=== PATIENT | female | born 1980 | race Caucasian/White ===

== ENCOUNTER 2022-10-03 01:33 | Outpatient (CLI) | payer BC, SELFPAY ==
[2022-10-03 11:36] LABS: ALT 20 U/L (14-59); AST 17 U/L (15-37); Alkaline Phosphatase 65 U/L (46-116); Anion Gap 7.5 mmol/L (3-11); BUN 19 mg/dL (7-18); Bilirubin, Total 0.3 mg/dL (0.2-1.0); CO2 27.5 mmol/L (21.0-32.0); CREATININE 0.8 mg/dL (0.55-1.02); Calcium 9.3 mg/dL (8.5-10.1); Calculated LDL 101 mg/dL (<100); Chloride 104 mmol/L (98-107); Cholesterol 173 mg/dL (<200); Estimated GFR 95.46 (mL/min/1.73m2); Folate 15.6 ng/mL (8.6-20.0); Glucose 92 mg/dL (74-106); HDL Cholesterol 51 mg/dL (40-60); Sodium 139 mmol/L (136-145); Triglyceride 107 mg/dL (<150); Vitamin B12 287 pg/mL (193-986)
[2022-10-04 09:13] LABS: HIV-1/2 Ag & Ab Screen Negative (Negative)
[2022-10-06 10:35] LABS: Hepatitis C Ab w Rflx HCV PCR Negative (Negative)
== END 2022-10-03 01:34 | disposition home or self-care (01) ==
LOC: LBO 01:33
PROVIDERS: PCP Nurse Practitioner Adult Health; Visit Provider Nurse Practitioner Adult Health
DX: E66.9 Obesity, unspecified (principal); R76.8 Other specified abnormal immunological findings in serum; Z11.4 Encounter for screening for human immunodeficiency virus [HIV]; Z11.59 Encounter for screening for other viral diseases; Z13.1 Encounter for screening for diabetes mellitus; Z13.220 Encounter for screening for lipoid disorders
CPT/HCPCS: 36415; 80053; 80061; 86803; 87389; 82607; 82746

== ENCOUNTER 2022-12-18 11:01 | Outpatient (REF) | payer BC, SELFPAY ==
--- NOTE | 2022-12-18 10:45 | PAPFT_PTH ---
PATIENT: Kristin Corral LOC: [facility] #:[id number] AGE/SX: 42/F ROOM: RE12/18/[address]: Shania Interiano APRN : 1980 BED: DIS: 12/18/2022 SPEC #: [id number] RECD: 12/18/22 18:34 STATUS: CADY REQ #: [id number] MOUSTAPHA: 12/18/22 10:[address]: Shania Interiano DEPT: [facility] Cytology RECD BY: Radha Rasmussen Tissues: 1 - CX/ENDOCX FOR PAP SMEARS Procedures: PAP THIN PREP/UVM Screening HPV DNA PROBE Comments: [id number]
== END 2022-12-18 11:02 | disposition home or self-care (01) ==
LOC: LBN 11:01
PROVIDERS: PCP Nurse Practitioner Adult Health; Referring Provider Nurse Practitioner Adult Health; Visit Provider Nurse Practitioner Adult Health
DX: Z12.4 Encounter for screening for malignant neoplasm of cervix (principal); Z11.51 Encounter for screening for human papillomavirus (HPV)
CPT/HCPCS: 88142; 87624

== ENCOUNTER 2024-01-04 05:38 | Outpatient (CLI) | payer BC, SELFPAY ==
[2024-01-04 09:32] LABS: BUN 20 mg/dL (7-18); CREATININE 0.8 mg/dL (0.55-1.02); Calcium 9.3 mg/dL (8.5-10.1); Chloride 104 mmol/L (98-107); Estimated GFR 94.87 (mL/min/1.73m2); Glucose 96 mg/dL (74-106); Potassium 4.2 mmol/L (3.5-5.1); Sodium 142 mmol/L (136-145); TSH (W/Ref FT4) 1.29 uIU/mL (0.36-3.74)
[2024-01-08 09:43] LABS: Testosterone, Total 13 ng/dL (8-60)
== END 2024-01-04 05:39 | disposition home or self-care (01) ==
LOC: LBO 05:38
PROVIDERS: PCP Nurse Practitioner Adult Health; Referring Provider Nurse Practitioner Adult Health; Visit Provider Nurse Practitioner Adult Health
DX: R79.9 Abnormal finding of blood chemistry, unspecified (principal); N92.6 Irregular menstruation, unspecified; R45.4 Irritability and anger; L68.0 Hirsutism
CPT/HCPCS: 36415; 80048; 84403; 84443

== ENCOUNTER 2024-09-06 02:10 | Outpatient (CLI) | payer BC, SELFPAY ==
[2024-09-06 08:27] LABS: Anion Gap 7.9 mmol/L (3-11); BUN 18 mg/dL (7-18); CO2 28.1 mmol/L (21.0-32.0); Calcium 9.1 mg/dL (8.5-10.1); Chloride 108 mmol/L (98-107); Estimated GFR 72.13 (mL/min/1.73m2); Glucose 98 mg/dL (74-106); Potassium 4.2 mmol/L (3.5-5.1); Sodium 144 mmol/L (136-145)
== END 2024-09-06 02:11 | disposition home or self-care (01) ==
LOC: LBO 02:10
PROVIDERS: PCP Nurse Practitioner Adult Health; Referring Provider Nurse Practitioner Adult Health; Visit Provider Nurse Practitioner Adult Health
DX: E66.01 Morbid (severe) obesity due to excess calories (principal); Z68.41 Body mass index [BMI] 40.0-44.9, adult
CPT/HCPCS: 36415; 80048

== ENCOUNTER 2024-09-28 17:14 | Outpatient (REF) | payer BC, SELFPAY ==
[2024-09-28 17:45] LABS: COVID-19 PCR Negative (Negative); Influenza A PCR Negative (Negative); Influenza B PCR Positive (Negative); RSV PCR Negative (Negative); Source NASOPHARYNX
== END 2024-09-28 17:15 | disposition home or self-care (01) ==
LOC: NCHCN 17:14
PROVIDERS: PCP Nurse Practitioner Adult Health; Visit Provider Nurse Practitioner Adult Health
DX: J98.8 Other specified respiratory disorders (principal); B97.89 Other viral agents as the cause of diseases classified elsewhere
CPT/HCPCS: 87637

== ENCOUNTER 2025-03-03 11:09 | Outpatient (REF) | payer BC, SELFPAY ==
--- NOTE | 2025-03-03 09:40 | ENDOMET_PTH ---
PATIENT: Kristin Corral LOC: [facility] U#:[id number] AGE/SX: 44/F ROOM: RE03/03/[address]: Hallie Patricio DO : 1980 BED: DIS: 03/03/2025 SPEC #: [id number] RECD: 03/03/25 12:47 STATUS: CADY REQ #: [id number] MOUSTAPHA: 03/03/25 09:[address]: Hallie Patricio DEPT: Surgical Specimen RECD BY: Radha Rasmussen ENTERED: 03/03/25 12:47 SP TYPE: Endomet OTHR DR: Shania Interiano APRN Tissues: 1 - ENDOMETRIUM BX/ASUNCIONETTE Procedures: GROSS AND MICRO LEVEL 4 Comments: [id number]
== END 2025-03-03 11:10 | disposition home or self-care (01) ==
LOC: LBN 11:09
PROVIDERS: PCP Nurse Practitioner Adult Health; Visit Provider Obstetrics & Gynecology
DX: R87.619 Unspecified abnormal cytological findings in specimens from cervix uteri (principal)
CPT/HCPCS: 88305

== ENCOUNTER 2025-04-03 03:55 | Outpatient (CLI) | payer BC, SELFPAY ==
[2025-04-03 09:46] LABS: Abs Immature Grans 0.01 10^3/uL (0.0-0.06); HCT 38.4 % (36.0-46.0); HGB 12.7 g/dL (11.2-15.7); Immature Grans % 0.2 %; MCH 29.8 pg (27.0-33.0); MCHC 33.1 % (32.0-36.0); MCV 90 fL (80-95); MPV 9.4 fL (8.0-11.0); Platelet Count 299 10^3/uL (130-400); RBC 4.26 10^6/uL (3.93-5.22); RDW 12.7 % (11.7-14.6); RDW-SD 41.7 fL; WBC 5.61 10^3/uL (4.4-10.8)
== END 2025-04-03 03:56 | disposition home or self-care (01) ==
LOC: LBO 03:55
PROVIDERS: PCP Nurse Practitioner Adult Health; Visit Provider Obstetrics & Gynecology
DX: Z01.818 Encounter for other preprocedural examination (principal)
CPT/HCPCS: 36415; 86850; 86900; 86901; 85025

== ENCOUNTER 2025-04-12 06:14 | Day surgery (SDC) | payer BC, SELFPAY ==
[2025-04-12] VITALS (16 sets, daily range): BP systolic 93–124; BP diastolic 74–81; PULSE 64–87; RESP 13–20; TEMP 36.2–37; O2SAT 98–100; BMI 25.5
[2025-04-12] MEDS: Lactated Ringers 1,000 ML 125 ML IV (06:41)
--- NOTE | 2025-04-12 07:05 | W.ANESPRE ---
General Info Date of Service Date Performed: 04/12/25 Height: 5 ft 2 in Weight: 63.3 kg Body Mass Index (BMI): 25.5 Surgical Procedure: Operation Date: 04/12/25 07:40 Proposed Procedure Side Surgeon p Dilation & Curettage with Hysteroscopy Hallie Patricio DO Meds Allergies and Home Medications Allergies Allergy/AdvReac Type Severity Reaction Status Date / Time shellfish derived Allergy Severe throat Verified 04/12/25 06:31 swelling and itching iodine Allergy Unknown Anaphylaxis Verified 04/12/25 06:31 Home Medication ?Medication ?Instructions ?Recorded tirzepatide 10 mg/0.5 mL 10 mg (0.5 mL) subcut QWEEK #2 mL 10/26/24 subcutaneous pen injector Current Visit Medications: Current Medications Generic Name Dose Route Start Last Admin Trade Name Freq PRN Reason Stop Dose Admin Ringer's Solution 1,000 mls @ 125 mls/hr 04/12/25 06:00 04/12/25 06:41 IV 04/12/25 23:59 125 mls/hr INFUSION MOHINDER Administration IV Miscellaneous Supplies 1 each 04/12/25 06:00 Iv Access IV 04/12/25 23:59 DIRECTED MOHINDER Sodium Chloride 0 ml 04/12/25 06:00 Normal Saline Flush 10 Ml Syr IV 04/12/25 23:59 PRN PRN Sodium Chloride 0 ml 04/12/25 06:00 Normal Saline 10 Ml Vial IJ 04/12/25 23:59 DIRECTED PRN Sterile Water 0 ml 04/12/25 06:00 Water,Injection,Sterile 10 Ml Vial IJ 04/12/25 23:59 DIRECTED PRN PFSH Active Problems Active Problems: Problem Status Onset Code Dysfunctional uterine bleeding Acute N93.8 Influenza B Acute ~09/2024 J10.1 Menstrual changes Acute ~05/2023 N92.6 Obesity Chronic E66.9 Family history of breast cancer Chronic Z80.3 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 Medical History Medical History Viral respiratory illness (~09/2024) Elevated BUN Surgical History Surgical History History of wisdom tooth extraction No pertinent past surgical history Tobacco Smoking/Tobacco Use Status: Never Passive smoking exposure: No Alcohol Alcohol Intake: current Alcohol intake frequency: a few times a month Substance Use Substance use: Never Substance use type: does not use Counseling provided: none Prental History History Para 2 Hx # Term Pregnancies Multiple births Hx # Pregnancies Ectopic pregnancies AB induced Hx Number of Living Children AB spontaneous Vital Signs and Lab Results Vital Signs Most Recent Vital Signs in EMR: Most Recent Vital Signs Temp Pulse Resp BP Pulse Ox 36.7 C 83 17 115/77 100 04/12/25 06:22 04/12/25 06:22 04/12/25 06:22 04/12/25 06:22 04/12/25 06:22 Point of Care Results Point of Care Results: POC- Test(urine) Negative 04/12/25 06:30 Lab Results Blood Type / Crossmatch: Antibody Screen NEGATIVE 04/03/25 Complete Blood Count: WBC, (4.4-10.8) 5.61 10^3/uL 04/03/25, 09:37 RBC, (3.93-5.22) 4.26 10^6/uL 04/03/25, 09:37 Hgb, (11.2-15.7) 12.7 g/dL 04/03/25, 09:37 Hct, (36.0-46.0) 38.4 % 04/03/25, 09:37 Plt Count, (130-400) 299 10^3/uL 04/03/25, 09:37 Anesthesia Assessment and Plan Anesthesia History Personal History: No History of Anesthesia Complications Family History: No Family History of Anesthesia Complications Exercise Tolerance Exercise Tolerance: Metabolic Equivalents>4 Pertinent Negatives Pertinent Negatives: No Symptoms of GERD, No Major Cardiovascular Symptoms or Complaints and No Major Pulmonary Symptoms or Complaints Cardiac & Pulmonary Exam Cardiac Exam: Normal S1/S2 Heart Sounds Pulmonary Exam: Clear Bilateral Breath Sounds Implantable Cardiac Device Does patient have a Pacemaker or an ICD?: No Airway Exam Known Difficult Airway: No Mallampati Class: 2 Mouth Opening: Normal (> 3cm) Thyromental Distance: Greater than 3 cm Neck Range of Motion: Full ROM Neck Circumference: Normal Teeth Condition: Normal Dentition ASA Classification ASA Score: ASA 2 Emergency Case?: No NPO Status NPO Status: NPO Clears >2 hours, Solids >8 hours Status Status: Negative HCG Anesthesia Plan Resuscitation Status: Full Code Anesthesia Technique: General Anesthesia Airway Planned: Natural Airway Monitors Used: Standard Monitors
--- NOTE | 2025-04-12 07:53 | ENDO_PTH ---
PATIENT: Kristin Corral LOC: [facility] U#:[id number] AGE/SX: 44/F ROOM: RE04/12/[address]: Hallie Patricio DO : 1980 BED: DIS: 04/12/2025 SPEC #: [id number] RECD: 04/12/25 13:15 STATUS: CADY [facility] #: [id number] MOUSTAPHA: 04/12/25 07:[address]: Hallie Patricio DEPT: Surgical Specimen RECD BY: Radha Rasmussen ENTERED: 04/12/25 13:16 SP TYPE: Endo OTHR DR: Shania Interiano APRN Tissues: 1 - ENDOCERVICAL BX/CURRETTE 2 - ENDOMETRIUM BX/CURRETTE Procedures: GROSS AND MICRO LEVEL 4 Comments: [id number]
--- NOTE | 2025-04-12 08:10 | W.PM.OP ---
Operative Note Operative Note PRE-OP DIAGNOSIS: Dysfunctional uterine bleeding POST-OP DIAGNOSIS: same PROCEDURE: Hysteroscopy, fractional dilation and curettage SURGEON: Hallie Patricio ANESTHESIA TYPE: General:No Airway Refer to Anesthesia Record ESTIMATED BLOOD LOSS: 5 PATHOLOGY: other (1. Endocervical curettage 2. Endometrial curettage) COMPLICATIONS: None Patient was transported to: PACU Patient's condition: stable Indications: Dysfunctional uterine bleeding. Findings: plush but regular endometrium. No intrauterine pathology noted. No polyps or fibroids appreciated. Tubal ostia visualized bilaterally. Procedure Description: After full informed consent was obtained, patient taken the operating suite with an IV running. She is placed in dorsal supine position and anesthesia administered. She was then placed in the modified dorsolithotomy position in yellowfin stirrups and prepped and draped in the usual sterile fashion. She had emptied her bladder prior to coming to the surgical suite. She had DVT prophylaxis with pneumatic compression stockings. No antibiotic prophylaxis was warranted. A timeout was held. Exam under anesthesia revealed a uterus that is midline and mobile. There is no evidence of adnexal mass appreciated. Speculum inserted into the vaginal vault and the cervical os identified. A single-tooth tenaculum was used to grasp and stabilize the anterior lip of the cervix. Cervical os dilated sequentially to the point that a 4 mm hysteroscope could be passed without difficulty. With direct visualization and instillation of normal saline, hysteroscopy was performed. Endocervical cavity appeared smooth and regular. Endometrial cavity also smooth and regular, with plush endometrium. There is no evidence of polyp or fibroid. Both tubal ostia were visualized. At this point the hysteroscope portion of the procedure was terminated and the hysteroscope removed. Fluid deficit was 55 cc of normal saline. At this point fractional curettage was performed commencing with the endocervical curetting, followed by endometrial curetting. Single-tooth tenaculum was then removed and puncture sites were hemostatic. Speculum was removed from the vaginal vault and the patient was returned to the dorsal supine position. She awoke from anesthesia without difficulty. She was taken the postanesthesia care unit in stable condition. EBL: 5 mL Fluids: Crystalloid per anesthesia +55 cc normal saline deficit from hysteroscope Pathology: 1. Endocervical curettage 2. Endometrial curettage Complications: None apparent Findings: Smooth, though plush regular endometrium without evidence of polyp or fibroid. Date of Procedure: 04/12/25
--- NOTE | 2025-04-12 10:28 | W.ANESPOSTOP ---
Postoperative Evaluation Date, Time and Location Date Performed: 04/12/25 Time Performed: 09:08 Patient Location: Day Surgery Unit Vital Signs Most Recent Imported Vital Signs: Most Recent Vital Signs Temp Pulse Resp BP Pulse Ox 36.2 C L 65 17 121/81 100 04/12/25 09:05 04/12/25 09:05 04/12/25 09:05 04/12/25 09:05 04/12/25 09:05 Pain Score Most Recent Pain Score: Most Recent Pain Score Pain Level 0 04/12/25 09:05 Assessment Mental Status: Awake (Alert & Oriented to Patient Baseline) Airway and Respiratory Function: Patent airway with normal (patient baseline) respiratory exam Cardiovascular Function: Hemodynamically Stable Hydration Status: Adequately Hydrated Nausea & Vomiting: No Nausea or Vomiting Pain: Pt. Denies Any Pain Peripheral Nerve Block: Patient did not receive a nerve block
== END 2025-04-12 09:10 | disposition home or self-care (01) ==
PROVIDERS: PCP Nurse Practitioner Adult Health; Visit Provider Obstetrics & Gynecology
PROC: 0UDB8ZZ Extraction of Endometrium, Via Natural or Artificial Opening Endoscopic (ICD-10-PCS; CPT 58558; principal; 2025-04-12 07:30)
DX: N93.9 Abnormal uterine and vaginal bleeding, unspecified (principal); N92.6 Irregular menstruation, unspecified; N85.00 Endometrial hyperplasia, unspecified
CPT/HCPCS: 58558; 81025; 88305; J1100; J1885; J2250; J2405; J2704

== ENCOUNTER 2025-05-09 08:17 | Outpatient (CLI) | payer BC, SELFPAY ==
[2025-05-09 09:18] LABS: Abs Immature Grans 0.02 10^3/uL (0.0-0.06); HCT 36.2 % (36.0-46.0); HGB 11.8 g/dL (11.2-15.7); Immature Grans % 0.4 %; MCH 30.0 pg (27.0-33.0); MCHC 32.6 % (32.0-36.0); MCV 92 fL (80-95); MPV 9.9 fL (8.0-11.0); Platelet Count 269 10^3/uL (130-400); RBC 3.93 10^6/uL (3.93-5.22); RDW 12.6 % (11.7-14.6); RDW-SD 42.6 fL; WBC 5.31 10^3/uL (4.4-10.8)
== END 2025-05-09 08:18 | disposition home or self-care (01) ==
LOC: LBO 08:17
PROVIDERS: PCP Nurse Practitioner Adult Health; Visit Provider Obstetrics & Gynecology
DX: Z01.818 Encounter for other preprocedural examination (principal)
CPT/HCPCS: 36415; 86850; 86900; 86901; 85025

== ENCOUNTER 2025-05-10 07:57 | Day surgery (SDC) | payer BC, SELFPAY ==
[2025-05-10] VITALS (16 sets, daily range): BP systolic 102–119; BP diastolic 57–76; PULSE 64–86; RESP 12–19; TEMP 36.3–36.5; O2SAT 94–100; BMI 26.6
[2025-05-10] MEDS: Lactated Ringers 1,000 ML 125 ML IV (08:35)
--- NOTE | 2025-05-10 09:29 | ANES.PREOP_ITS ---
General Info Date of Service Date Performed: 05/10/25 Height: 5 ft 2 in Weight: 66 kg Body Mass Index (BMI): 26.6 Surgical Procedure: Operation Date: 05/10/25 09:25 Proposed Procedure Side Surgeon p Salpingectomy Laparoscopic Bilateral DO Harvey Carrillo Allergies and Home Medications Allergies Allergy/AdvReac Type Severity Reaction Status Date / Time shellfish derived Allergy Severe throat Verified 05/10/25 08:15 swelling and itching iodine Allergy Unknown Anaphylaxis Verified 05/10/25 08:15 Home Medication ?Medication ?Instructions ?Recorded tirzepatide 10 mg/0.5 mL 10 mg (0.5 mL) subcut QWEEK #2 mL 10/26/24 subcutaneous pen injector tirzepatide (weight loss) 7.5 7.5 mg (0.5 mL) subcut Q WEEK #2 mL 05/10/25 mg/0.5 mL subcutaneous pen injector (Zepbound) Current Visit Medications: Current Medications Generic Name Dose Route Start Last Admin Trade Name Freq PRN Reason Stop Dose Admin Ringer's Solution 1,000 mls @ 125 mls/hr 05/10/25 06:00 05/10/25 08:35 IV 05/10/25 23:59 125 mls/hr INFUSION MOHINDER Administration IV Miscellaneous Supplies 1 each 05/10/25 06:00 Iv Access IV 05/10/25 23:59 DIRECTED MOHINDER Sodium Chloride 0 ml 05/10/25 06:00 Normal Saline Flush 10 Ml Syr IV 05/10/25 23:59 PRN PRN Sodium Chloride 0 ml 05/10/25 06:00 Normal Saline 10 Ml Vial IJ 05/10/25 23:59 DIRECTED PRN Sterile Water 0 ml 05/10/25 06:00 Water,Injection,Sterile 10 Ml Vial IJ 05/10/25 23:59 DIRECTED PRN PFSH Active Problems Active Problems: Problem Status Onset Code S/P dilation and curettage Acute Z98.890 Status post hysteroscopy Acute Z98.890 Dysfunctional uterine bleeding Acute N93.8 Influenza B Acute ~09/2024 J10.1 Menstrual changes Acute ~05/2023 N92.6 Obesity Chronic E66.9 Family history of breast cancer Chronic Z80.3 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 Medical History Medical History Viral respiratory illness (~09/2024) Elevated BUN Surgical History Surgical History History of wisdom tooth extraction No pertinent past surgical history Tobacco Smoking/Tobacco Use Status: Never Passive smoking exposure: No Alcohol Alcohol Intake: current Alcohol intake frequency: a few times a month Substance Use Substance use: Never Substance use type: does not use Counseling provided: none Prental History History Para 2 Hx # Term Pregnancies Multiple births Hx # Pregnancies Ectopic pregnancies AB induced Hx Number of Living Children AB spontaneous Vital Signs and Lab Results Vital Signs Most Recent Vital Signs in EMR: Most Recent Vital Signs Temp Pulse Resp BP Pulse Ox 36.4 C L 64 16 102/57 L 100 05/10/25 08:20 05/10/25 08:20 05/10/25 08:20 05/10/25 08:20 05/10/25 08:20 Point of Care Results Point of Care Results: POC- Test(urine) Negative 05/10/25 08:15 Lab Results Blood Type / Crossmatch: Antibody Screen NEGATIVE 05/09/25 Complete Blood Count: WBC, (4.4-10.8) 5.31 10^3/uL 05/09/25, 09:08 RBC, (3.93-5.22) 3.93 10^6/uL 05/09/25, 09:08 Hgb, (11.2-15.7) 11.8 g/dL 05/09/25, 09:08 Hct, (36.0-46.0) 36.2 % 05/09/25, 09:08 Plt Count, (130-400) 269 10^3/uL 05/09/25, 09:08 Anesthesia Assessment and Plan Anesthesia History Personal History: No History of Anesthesia Complications Family History: No Family History of Anesthesia Complications Exercise Tolerance Exercise Tolerance: Metabolic Equivalents>4 Cardiac & Pulmonary Exam Cardiac Exam: Normal S1/S2 Heart Sounds Pulmonary Exam: Clear Bilateral Breath Sounds Implantable Cardiac Device Does patient have a Pacemaker or an ICD?: No Airway Exam Known Difficult Airway: No Mallampati Class: 2 Mouth Opening: Normal (> 3cm) Thyromental Distance: Greater than 3 cm Neck Range of Motion: Full ROM Neck Circumference: Normal Teeth Condition: Normal Dentition ASA Classification ASA Score: ASA 2 Emergency Case?: No NPO Status NPO Status: NPO Clears >2 hours, Solids >8 hours Status Status: Negative HCG Anesthesia Plan Resuscitation Status: Full Code Anesthesia Technique: General Anesthesia Airway Planned: Endotracheal Tube Monitors Used: Standard Monitors
[2025-05-10] MEDS: Bupivacaine 0.25% Pres-Free 30 ML VIAL (10:51)
--- NOTE | 2025-05-10 10:55 | FALL_PTH ---
PATIENT: Kristin Corral LOC: [facility] U#:[id number] AGE/SX: 44/F ROOM: RE05/10/[address]: Hallie Patricio DO : 1980 BED: DIS: 05/10/2025 SPEC #: [id number] RECD: 05/10/25 12:47 STATUS: CADY RE #: [id number] MOUSTAPHA: 05/10/25 10:[address]: Hallie Patricio DEPT: Surgical Specimen RECD BY: Radha Rasmussen ENTERED: 05/10/25 12:50 SP TYPE: Fall OTHR DR: Shania Interiano APRN Tissues: 1 - FALLOPIAN TUBE (OTHER) 2 - FALLOPIAN TUBE (OTHER) Procedures: GROSS AND MICRO LEVEL 2 Comments: [id number]
[2025-05-10] MEDS: Silver Nitrate Stick 1 EACH (11:15)
--- NOTE | 2025-05-10 11:24 | W.PM.OP ---
Operative Note Operative Note PRE-OP DIAGNOSIS: Heavy menstrual bleeding, undesired fertility POST-OP DIAGNOSIS: same PROCEDURE: Laparoscopic bilateral salpingectomy. NovaSure endometrial ablation. SURGEON: Hallie Patricio ASSISTING SURGEON: Alicia Macias ANESTHESIA TYPE: Local By Surgeon and General LMA/ETT Refer to Anesthesia Record ESTIMATED BLOOD LOSS: 5 PATHOLOGY: other (1. Left fallopian tube 2. Right fallopian tube) COMPLICATIONS: None Patient was transported to: PACU Patient's condition: stable Indications: Heavy menstrual bleeding. Desires surgical intervention. Findings: Normal-appearing tubes, ovaries, uterus. Uterus is small, involuted, midline, mobile. No evidence of intra-abdominal pathology or trauma noted. Procedure Description: After full informed consent was obtained, patient was taken the operating suite with an IV running. She was placed in dorsal supine position and endotracheal intubation performed with administration of general anesthesia with ease. She was then placed in the modified dorsal lithotomy position and prepped and draped in the usual sterile fashion. A timeout was held. Exam under anesthesia with revealed a uterus that was midline and mobile. She had pneumatic compression stockings for DVT prophylaxis. There was no need for antibiotic prophylaxis. Attention was first turned to the vaginal vault where speculum was placed into the vaginal vault. Cervix identified and a [employer] uterine manipulator placed for uterine manipulation. At this point speculum was removed and attention was turned to the abdomen. Infiltration of quarter percent Marcaine at the umbilicus was performed. A small infraumbilical incision was made and sharp towel clips used to elevate the anterior abdominal wall. A Veress needle was inserted into the abdomen. Pneumoperitoneum created with a maximum pressure of 15 mmHg with CO2 gas. At this point under direct visualization a 12 mm Optiview port was placed. There was no evidence of intra-abdominal trauma or pathology. A 2nd and 3rd right and left lower quadrant trocar sites were placed under direct visualization after infiltration of quarter percent Marcaine. 5 mm ports were placed in each of these locations. At this point, bowel was swept out of the pelvis. The uterus, tubes, ovaries were identified. The left fallopian tube was elevated and cautery transected for removal. Similar procedure was carried out on the right fallopian tube which was elevated, cautery transected and removed from the abdomen. The pedicles were noted to be hemostatic. At this point the salpingectomy portion of the procedure was terminated. Pneumoperitoneum released. 5 mm and 12 mm trocars were removed from the abdomen. Umbilical fascial incision was closed using 0 Vicryl suture in a simple interrupted fashion. Skin edge was reapproximated with 4-0 undyed Monocryl and Steri-Strips and sterile dressings were placed. At this point, attention was again returned to the vaginal vault. Speculum inserted into the vaginal vault. Hulka uterine manipulator had been removed. A single-tooth tenaculum was used to grasp the anterior lip of the cervix. The cervical os was then dilated to the point that a NovaSure device could be placed. Cavity evaluation was performed. Endometrial cavity was measured at 5 cm. The NovaSure device was inserted through the cervical os to the fundus and cavity width assessed at 2.8 cm. At this point, with the device deployed, cavity assessment performed. Cavity was then burned with radiofrequency at 1 minute 31 seconds. Upon completion of the ablation, the device was removed and noted to be completely intact. Single-tooth tenaculum is removed to the anterior lip of the cervix. The right puncture site was not hemostatic and chemically cauterized with silver nitrate to achieve hemostasis. At this point speculum was removed and the patient was returned to the dorsal supine position. She awoke from anesthesia without difficulty. She was taken the postanesthesia care unit in stable condition. Findings: Normal-appearing tubes, ovaries, uterus. No evidence of intra-abdominal pathology or trauma. Complications: None apparent Pathology: 1. Left fallopian tube.2. Right fallopian tube EBL: 5 mL Fluids: Crystalloid per anesthesia Date of Procedure: 05/10/25
[2025-05-10] MEDS: fentaNYL 100 MCG/2 ML VIAL IVP (11:41)
--- NOTE | 2025-05-10 13:08 | W.ANESPOSTOP ---
Postoperative Evaluation Date, Time and Location Date Performed: 05/07/25 Time Performed: 13:09 Patient Location: Day Surgery Unit Vital Signs Most Recent Imported Vital Signs: Most Recent Vital Signs Temp Pulse Resp BP Pulse Ox 36.3 C L 64 16 111/71 100 05/10/25 12:35 05/10/25 12:35 05/10/25 12:35 05/10/25 12:35 05/10/25 12:35 Pain Score Most Recent Pain Score: Most Recent Pain Score Pain Level 5 05/10/25 12:35 Assessment Mental Status: Awake (Alert & Oriented to Patient Baseline) Airway and Respiratory Function: Patent airway with normal (patient baseline) respiratory exam Cardiovascular Function: Hemodynamically Stable Hydration Status: Adequately Hydrated Nausea & Vomiting: No Nausea or Vomiting Pain: Pain is tolerable per patient Peripheral Nerve Block: Patient did not receive a nerve block Teaching Patient Teaching: Other Postoperative Comments:: should discomfort dicussed ways to help relieve
== END 2025-05-10 13:10 | disposition home or self-care (01) ==
PROVIDERS: PCP Nurse Practitioner Adult Health; Visit Provider Obstetrics & Gynecology
PROC: (CPT 58661; principal; 2025-05-10 09:15)
PROC: (CPT 58353; 2025-05-10 09:15)
DX: N92.0 Excessive and frequent menstruation with regular cycle (principal); Z30.2 Encounter for sterilization
CPT/HCPCS: 58661; 58563; 81025; 88302; 88304; J0665; J1100; J1885; J2003; J2405; J2704; J3010